=== PATIENT | male | born 1970 ===

== ENCOUNTER 2022-07-28 00:57 | Outpatient (CLI) | payer MEDICAID, SELFPAY ==
--- NOTE | 2022-07-28 | DI.RAD_ITS ---
Exam(s) RF CATHETER PATENCY CHECK W EXAM: RF CATHETER PATENCY CHECK W CLINICAL HISTORY: RT BREAST CA,BLOCKAGE TOTALLY IMPLANTABLE VENOUS ACCESS DEVICE,T82.598A, TECHNIQUE: 2D and realtime digital imaging was performed. CONTRAST MATERIAL: Intravenous contrast material. COMPARISON: No exams were available for comparison FINDINGS: Fluoroscopy was provided during the performance of a Port-A-Cath evaluation. There is free flow of c ontrast from the tip of the catheter during the examination. No evidence of obstruction is seen. Th e patient tolerated the procedure well and left the department in stable condition. IMPRESSION: No evidence of catheter obstruction. RADIATION DOSE DELIVERED: quinton Delarosa=16.3 mGy
--- OUTSIDE RECORDS SUMMARY | 2022-07-28 01:01 | XMS_ITS ---
:1970 Author Organization [facility] Address [address], [place] [id number] Care Team Providers Name Role Phone Lor Johnson Unavailable Unavailable PROBLEMS Type Condition ICD9-CM Code YCW85-FR Code Onset Condition SNO MED Code Dates Status Problem BMI 40.0-44.9, Z68.41 Active 08686 2008 adult Problem Breast cancer C50.919 Active 524972 009 Problem Nicotine F17.210 Active 745116178 dependence, cigarettes, uncomplicated Problem Pre-employment Z02.1 Active 51524 7001 examination ALLERGIES No Known Allergies ENCOUNTERS Encounter Location Date Diagnosis [facility] [address] [place] [address] 15 Mar, 2022 Breast cancer C50.919 ; [facility] Suite Tobacco abuse Z7 2.0 and [place], [place] BMI 40.0-44.9, a dult [id number] Z68.41 [facility] [address] [place] [address] Mar, [facility] [address] [place] [address] [phone] [facility] [address] [place] [address] Mar, [facility] [address] [place] [address] [phone] [facility] [address] [place] [address] Feb, Breast mass in male N63.0 [facility] [address] [place] [phone] Oct, Encounter f or other Healthcare [address] [place], [place] [facility] [phone] examinations Z [address] Jun, Encounter f or other Healthcare [address] [place], [place] [facility] [phone] examinations Z [address] 30 Jun, 2020 Pre-employm ent examination Healthcare [address] [place], [place] Z02.1 [facility] Department [phone] IMMUNIZATIONS No Known Immunizations SOCIAL HISTORY Qualifiers Date Current Smoker REASON FOR REFERRAL FUNCTIONAL STATUS PLAN OF CARE Activity Details Follow Up 3 Weeks Reason: VITAL SIGNS Height 71 in 2022-03-30 Height 71 in 2022-03-14 Weight 314.4 lbs 2022-03-30 Weight 320.6 lbs 2022-03-14 Temperature 97.4 degrees Fahrenheit 2022-03-30 Temperature 97.2 degrees Fahrenheit 2022-03-14 Heart Rate 95 /min 2022-03-30 Heart Rate 80 /min 2022-03-14 Oximetry 98 2022-03-30 Oximetry 99 2022-03-14 BMI 43.85 kg/m2 2022-03-30 BMI 44.71 kg/m2 2022-03-14 Blood pressure systolic 170 mm Hg 2022-03-30 Blood pressure diastolic 92 mm Hg 2022-03-30 MEDICATIONS No Known Medications PROCEDURES Procedure Date Ordered Result Body Site OCD Audio Hearing Test w/review Jul 14, 2020 OCD Urine Drug Screen (collection only) October 20, 2021 OCD Urine Drug Screen (collection only) Jul 14, 2020 RESULTS Name Result Date Reference Range CBC, NO DIFF 2022-04-05 WBC 12.8 4.8-10.8 RBC 5.48 4.70-6.10 HGB 15.7 14.0-18.0 HCT 47.6 42.0-52.0 MCV 86.9 80.0-94.0 MCH 28.6 27.0-31.0 MCHC 33.0 32.0-37.0 RDW-CV 12.3 11.5-14.5 PLT 346 130-400 COMPREHENSIVE METABOLIC PROFILE 2022-04-05 SODIUM 137 134-143 POTASSIUM 4.4 3.5-5.1 CHLORIDE 106 98-111 CO2 27 22-32 CALCIUM 9.2 8.9-10.3 GLUCOSE 96 74-106 BUN 18 8-26 CREATININE 0.68 0.61-1.24 TOTAL BILIRUBIN 0.4 0.3-1.2 TOTAL PROTEIN 7.2 6.5-8.1 ALBUMIN 3.8 3.5-5.0 ALKALINE PHOS 112 38-130 AST 16 15-41 ALT 22 17-63 A/GAP 4.0 3.0-12.0 B/CR 26.5 8.0-20.0 OSMOLARITY 276 275-295 GLOBULIN 3.4 2.3-3.5 A/G 1.1 1.0-2.5 OCD URINE COLLECTION 2021-10-20 COVID 19 SCREENING PCR ([id number]) 2021-05-30 SARS-CoV-2, YOANNA Not Detected Not Detected OCD URINE COLLECTION 2020-07-14 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), GS RIGHT BREAST MASTECTOMY WITH SENT NODE BX, GS EKG TO SEE ARNOLDO, GO OVER PATH RESULTS, GS F/U FNA, cert letter/unable to contract pt , gs breast bx, GS-breast mass/cancer, GI-breast mass/cancer, occ - udc, OCC udc, OCC ppx audio Insurance Providers [facility] Member Patient Patient Patient Patient Patient Subscriber Subscriber Subscriber Group Insurance Plan Plan Plan Plan ID Relationship Address Phone Name Date of ID Name Date of No Type Insurance Insurance Insurance Coverage to Subscriber Address Phone Name Dates SELF SELF self Jasmeet 1970 PAY/NO PAY/NO [place] INSURANCE INSURANCE [place] [employer] [phone] RHC self Jasmeet 1970 [id number] [id number] [place] [facility] [place] [id number] [employer] [phone] [employer] self Jasmeet 1970 [id number] [facility] [phone] [place] [facility] [place] [id number]
[2022-07-28] MEDS: Omnipaque 350 MG/ML 50 ML BTL 20 ML IJ (14:32)
== END 2022-07-28 01:17 ==
PROVIDERS: Visit Provider Nurse Practitioner Adult Health
DX: T82.598A Other mechanical complication of other cardiac and vascular devices and implants, initial encounter (principal)
CPT/HCPCS: 76000; Q9967